=== PATIENT | female | born 2000 | race American Indian/Alaskan Native ===

== ENCOUNTER 2018-01-27 23:44 | Emergency (ER) | payer MEDICAID ==
[2018-01-28 00:54] VITALS: BP 118/68
[2018-01-28 01:24] LABS: Amorphous Crystals,Urine Few; Bacteria,Urine 1+ /HPF (Negative); Bilirubin,Urine NEG (Negative); Blood,Urine NEG (Negative); Color,Urine Yellow (Yellow); HCG Qualitative,Urine Negative (Negative); Mucus,Urine FEW /HPF; Protein,Urine <15 mg/dL mg/dL (Negative); Urobilinogen,Urine < 2.0 mg/dL (<2.0)
[2018-01-28 01:30] LABS: Basophils % (Auto) 0.5 % (0.0-1.8); Eosinophils % (Auto) 0.5 % (0.0-4.3); Hematocrit 39.7 % (30.3-42.9); Hemoglobin 13.1 gm/dl (10.1-14.3); Lymphocytes # (Auto) 1.9 K/mm3 (1.2-5.4); Lymphocytes % (Auto) 24.5 % (13.4-35.0); Mean Corpuscular HGB Conc 33 % (30-34); Mean Corpuscular Hemoglobin 29 pg (28-32); Mean Corpuscular Volume 86 fl (79-97); Monocytes # (Auto) 0.7 K/mm3 (0.0-0.8); Monocytes % (Auto) 8.3 % (0.0-7.3); Platelet Count 211 K/mm3 (140-440); Red Cell Distribution Width 14.8 % (13.2-15.2)
[2018-01-28 01:46] LABS: Alanine Aminotransferase 6 units/L (7-56); Albumin 4.4 g/dL (3.9-5); BUN/Creatinine Ratio 22; Blood Urea Nitrogen 11 mg/dL (7-17); Calcium 9.4 mg/dL (8.4-10.2); Hemolysis Index 10
--- NOTE | 2018-01-28 03:47 | Emergency Department Report ---
ED Female HPI - General Chief complaint: Urogenital-Female Stated complaint: ABD PAIN Time Seen by Provider: 01/28/18 02:32 Source: patient Mode of arrival: Ambulatory Limitations: No Limitations - History of Present Illness Initial comments: This is a 17-year-old female nontoxic, well nourished in appearance, no acute signs of distress presents to the ED with c/o of vaginal discharge, urinary frequency, dysuria, pelvic pain x3 days. Patient denies any vaginal pain or swelling. Patient denies any vaginal ulcers or lesions. Patient denies any nausea, vomiting, chest pain, shortness of breathe, fever, chills, headache, back pain, numbness, tingling, stiff neck. Patient denies any other urinary symptoms. Patient denies any allergies or PMH. Patient stated she is concerned about STD and wants to be tested and treated. MD Complaint: vaginal discharge, dysuria, pelvic pain, possible STD -: days(s) (2) Radiation: non-radiating Severity: mild Severity scale (0 -10): 3 Quality: cramping Consistency: intermittent Improves with: none Worsens with: none Are you Now?: No Last Menstrual Period: 01/05/18 EDC: 10/12/18 Associated Symptoms: vaginal discharge, abdominal pain (pelvic), dysuria. denies: vaginal bleeding, nausea/vomiting, fever/chills, headaches, loss of appetite, hematuria, rash, seizure, shortness of breath, syncope, weakness - Related Data Sexually active: Yes Previous Rx's Medication Instructions Recorded Last Taken Type Sulfamethoxazole/Trimethoprim 1 each PO BID #14 tablet 01/28/18 Unknown Rx [Bactrim DS TAB] metroNIDAZOLE [Flagyl] 500 mg PO Q12HR #14 tab 01/28/18 Unknown Rx Allergies Allergy/AdvReac Type Severity Reaction Status Date / Time No Known Allergies Allergy Verified 01/28/18 00:46 ED Review of Systems ROS: Stated complaint: ABD PAIN Other details as noted in HPI Constitutional: denies: chills, fever Eyes: denies: eye pain, eye discharge, vision change ENT: denies: ear pain, throat pain Respiratory: denies: cough, shortness of breath, wheezing Cardiovascular: denies: chest pain, palpitations Endocrine: no symptoms reported Gastrointestinal: abdominal pain (pelvic). denies: nausea, vomiting, diarrhea Genitourinary: urgency, dysuria, frequency, discharge. denies: hematuria Musculoskeletal: denies: back pain, joint swelling, arthralgia Skin: denies: rash, lesions Neurological: denies: headache, weakness, paresthesias Psychiatric: denies: anxiety, depression Hematological/Lymphatic: denies: easy bleeding, easy bruising ED Past Medical Hx - Past Medical History Previous Medical History?: No - Surgical History Additional Surgical History: umbilicus sx - Social History Smoking Status: Never Smoker Substance Use Type: Marijuana - Medications Home Medications: Home Medications Medication Instructions Recorded Confirmed Last Taken Type Sulfamethoxazole/Trimethoprim 1 each PO BID #14 tablet 01/28/18 Unknown Rx [Bactrim DS TAB] metroNIDAZOLE [Flagyl] 500 mg PO Q12HR #14 tab 01/28/18 Unknown Rx ED Physical Exam - General Limitations: No Limitations General appearance: alert, in no apparent distress - Head Head exam: Present: atraumatic, normocephalic - Eye Eye exam: Present: normal appearance Pupils: Present: normal accommodation - ENT ENT exam: Present: normal exam, mucous membranes moist - Neck Neck exam: Present: normal inspection, full ROM. Absent: tenderness, meningismus, lymphadenopathy - Respiratory Respiratory exam: Present: normal lung sounds bilaterally. Absent: respiratory distress, wheezes, rales, rhonchi, stridor, chest wall tenderness, accessory muscle use, decreased breath sounds, prolonged expiratory - Cardiovascular Cardiovascular Exam: Present: regular rate, normal rhythm, normal heart sounds. Absent: bradycardia, tachycardia, irregular rhythm, systolic murmur, diastolic murmur, rubs, gallop - GI/Abdominal GI/Abdominal exam: Present: soft, tenderness (pelvic bilateral), normal bowel sounds. Absent: distended, guarding, rebound, rigid, diminished bowel sounds - Expanded GI/Abdominal Exam Expanded GI/Abdominal exam: Absent: psoas sign, obturator sign, heel tap sign, Hughes's sign, Rovsing's sign, tenderness at Mcburney's Point, ascites - Rectal Rectal exam: Present: deferred - External exam: Present: normal external exam, other (general office associate Janeth printing specialist present during exam). Absent: erythema, swelling, lesions, lacerations, ecchymosis, bleeding Speculum exam: Present: normal speculum exam, cervical discharge, other ( general office associate Jan[employer] printing specialist present during exam). Absent: erythema, vaginal discharge, vaginal bleeding, foreign body, tissue, laceration Bi-manual exam: Present: normal bi-manual exam (general office associate Jan[employer] printing specialist present during exam), other (general office associate Janeth printing specialist present during exam). Absent: cervical motion tendernes, adnexal tenderness, adnexal mass, uterine enlargement, uterine tenderness - Extremities Exam Extremities exam: Present: normal inspection, full ROM, normal capillary refill. Absent: tenderness - Back Exam Back exam: Present: normal inspection, full ROM. Absent: tenderness, CVA tenderness (R), CVA tenderness (L), muscle spasm, paraspinal tenderness, vertebral tenderness, rash noted - Neurological Exam Neurological exam: Present: alert, oriented X3, normal gait - Psychiatric Psychiatric exam: Present: normal affect, normal mood - Skin Skin exam: Present: warm, dry, intact, normal color. Absent: rash ED Course Vital Signs 01/28/18 00:46 Temperature 98.2 F Pulse Rate 101 H Blood Pressure 118/68 O2 Sat by Pulse 100 Oximetry - Reevaluation(s) Reevaluation #1: 01/28/18 03:48 Patient is speaking in full sentences with no signs of distress noted. ED Medical Decision Making - Lab Data Result diagrams: 01/28/18 01:08 01/28/18 01:08 - Medical Decision Making This is a 17-year-old female that presents with uti, pelvic pain, and possible STD and BV. Patient is stable and was examined by me. There is slight pelvic tenderness. Negative signs of symptoms of appendicitis. Labs obtained. UA obtained. US of duplex pelvic and transvaginal obtained and dictated by the radiologist. Patient is notified of the report with no questions noted by the patient. Negative cervial and adnexal tenderness. Vital signs are stable prior to discharge. Patient received Motrin in the ED which patient stated symptoms has resolved and subsided. PAtient also received 1G rocpeing and 1G azithromyicn. A by mouth challenge has been obtained and patient tolerated well with no nausea vomiting. Patient was notified of strict precautions of appendicitis symptoms and to return to the ED if symptoms occurs as soon as possible. Patient was also instructed to Follow-up with a primary care doctor in 3-5 days or if symptoms worsen and continue return to emergency room as soon as possible. At time of discharge, the patient does not seem toxic or ill in appearance. No acute signs of distress noted. Patient agrees to discharge treatment plan of care. No further questions noted by the patient. Critical care attestation.: If time is entered above; I have spent that time in minutes in the direct care of this critically ill patient, excluding procedure time. ED Disposition Clinical Impression: Bacterial vaginosis, Possible exposure to STD UTI (urinary tract infection) Qualifiers: Urinary tract infection type: acute cystitis Hematuria presence: without hematuria Qualified Code(s): N30.00 - Acute cystitis without hematuria Disposition: TO HOME OR SELFCARE Is pt being admited?: No Does the pt Need Aspirin: No Condition: Stable Instructions: Bacterial Vaginosis (ED), Safe Sex (ED), Urinary Tract Infection in Women (ED) Additional Instructions: Follow-up with a primary care doctor in 3-5 days or if symptoms worsen and continue return to emergency room as soon as possible. Do not consume any alcohol while taking antibiotics Prescriptions: metroNIDAZOLE [Flagyl] 500 mg PO Q12HR #14 tab Sulfamethoxazole/Trimethoprim [Bactrim DS TAB] 1 each PO BID #14 tablet Referrals: MELCHOR SIMMONS MD [Primary Care Provider] - 3-5 Days PRIMARY CARE, [Referring] - 3-5 Days RENATO JIM MD [Staff Physician] - 3-5 Days [facility] [Outside] - 3-5 Days Forms: Work/School Release Form(ED)
--- NOTE | 2018-01-28 05:25 | Ultrasound Report ---
FINAL REPORT EXAM: US TRANSVAGINAL HISTORY: pelvic pain COMPARISONS: None. FINDINGS: Transvaginal grayscale, color and spectral Doppler ultrasound evaluation of the pelvis Retroverted uterus measures approximately 7.2 x 4.3 x 5 cm. No focal myometrial abnormality. The endometrium is fairly homogeneous and measures up to 15 millimeters in thickness. Small subtle hyperechoic region in the lower uterine segment portion of the endometrium near the cervix measures approximately 13 x 7 x 9 millimeters and is without internal flow on color Doppler evaluation. Moderate free fluid in the pelvis. The right ovary measures 4.4 x 2.7 x 2.5 cm and shows normal echotexture, grayscale and color Doppler evaluation. The left ovary measures 6.1 x 4.3 x 4.6 cm and contains 3.6 centimeter lesion with reticular/lace-like pattern of internal echoes and mild peripheral color Doppler flow. Normal color and spectral Doppler evaluation of the left ovary. IMPRESSION: There is free fluid in the pelvis and a probable left ovarian 3.6 centimeter hemorrhagic cyst, which may account for patient's symptoms. Differential diagnosis includes endometrioma. Consider follow-up ultrasound in 6 or 10 weeks. There are no findings of ovarian torsion. Subtle heterogeneous lower uterine segment portion of the endometrium and/or cervix measures up to 13 millimeters and may be physiologic or represent a small polyp or clotted hemorrhagic material. This can be followed up on subsequent exam as well.
--- NOTE | 2018-01-28 05:26 | Ultrasound Report ---
FINAL REPORT EXAM: US PELVIS DUPLEX DOPPLER COMP HISTORY: pelvic pain COMPARISONS: None. FINDINGS: Transabdominal grayscale, color and spectral Doppler ultrasound evaluation of the pelvis Retroverted uterus measures approximately 7.2 x 4.3 x 5 cm. No focal myometrial abnormality. The endometrium is fairly homogeneous and measures up to 15 millimeters in thickness. Moderate free fluid in the pelvis. The right ovary measures 4.4 x 2.7 x 2.5 cm and shows normal echotexture, grayscale and color Doppler evaluation. The left ovary is better visualized on transvaginal exam. IMPRESSION: Nonvisualized left ovary on transabdominal examination. Please see transvaginal ultrasound of the same date. Small to moderate volume of pelvic ascites is noted.
[2018-01-28] MEDS ORDERED: ZITHROMAX PO ONE (05:31)
[2018-01-28] MEDS ORDERED: XYLOCAINE 1% MPF 5 mL INFILTRATI ONE (05:31)
[2018-01-28] MEDS ORDERED: ROCEPHIN IM ONE (05:31)
== END 2018-01-28 06:15 | disposition home or self-care (01) ==
LOC: ED 23:44
DX: N30.00 Acute cystitis without hematuria (principal); N76.0 Acute vaginitis; B96.89 Other specified bacterial agents as the cause of diseases classified elsewhere; F12.90 Cannabis use, unspecified, uncomplicated
CPT/HCPCS: 36415; 76830; 80053; 81001; 81025; 85025; 87210; 87591; 93975; 96372; 99285; J0696